=== PATIENT | female | born 1975 ===

== ENCOUNTER → 2017-09-03 | Outpatient (CLI) | payer OTHER ==
[~2017-09-03] MED LIST: AMOX500 PO; MULVITA PO
[2017-09-03 16:55] LABS: Specimen Source CERVIX
[2017-09-04 14:21] LABS: Source Cervix
[2017-09-04 20:16] LABS: HCV Non Reactive (NR)
== END ==
LOC: LAB 16:07
PROVIDERS: Physician Assistant
DX: N72 Inflammatory disease of cervix uteri (principal)
CPT/HCPCS: 80074; 86592; 87389; 87491; 87591

== ENCOUNTER 2021-02-13 00:56 | Observation (INO) | payer BC ==
[~2021-02-13] VITALS: Ht 165.1 cm; Wt 92.1 kg
[2021-02-13 02:37] LABS: Source, Urine Clean Catch
[2021-02-13 02:37] LABS: BASOPHILS ABSOLUTE AUTO 0.06 K/mm3 (0.00-0.23); BASOPHILS PERCENT AUTO 1 % (0-2); EOSINOPHILS ABSOLUTE AUTO 0.21 K/mm3 (0.00-0.68); EOSINOPHILS PERCENT AUTO 2 % (0-6); Hematocrit 45.5 % (33.0-51.0); Hemoglobin 14.7 g/dL (11.5-16.0); IMMATURE GRAN ABSOLUTE AUTO 0.07 K/mm3 (0.00-0.10); IMMATURE GRAN PERCENT AUTO 1 % (0-1); LYMPHOCYTES ABSOLUTE AUTO 2.73 K/mm3 (0.84-5.20); LYMPHOCYTES PERCENT AUTO 21 % (21-46); MONOCYTES ABSOLUTE AUTO 0.73 K/mm3 (0.16-1.47); MONOCYTES PERCENT AUTO 6 % (4-13); Mean Corpuscular HGB 27.3 pg (26.0-34.0); Mean Corpuscular HGB Conc 32.3 g/dL (31.5-36.5); Mean Corpuscular Volume 85 fL (80-100); Mean Platelet Volume 11.1 fL (9.1-12.4); NEUTROPHILS ABSOLUTE AUTO 8.95 K/mm3 (1.96-9.15); NEUTROPHILS PERCENT AUTO 70 % (41-73); Platelet Count 294 K/mm3 (150-400); RDW Coefficient Variation 13.5 % (11.7-14.2); RDW Standard Deviation 42.1 fL (35.1-46.3); Red Blood Cell Count 5.38 M/mm3 (3.80-5.20); White Blood Cell Count 12.75 K/mm3 (4.00-11.30)
[2021-02-13 02:50] LABS: Bilirubin, Urine Neg (Neg); Blood, Urine 1+ (Neg); Glucose Qualitative, Urine Neg (Neg); Ketones, Urine 1+ (Neg); Leukocyte Esterase, Urine Neg (Neg); Nitrite, Urine Neg (Neg); Protein, Urine 1+ (Neg); Urobilinogen, Urine NORM (Normal)
[2021-02-13 02:54] LABS: Appearance, Urine Clear (Clear); Color, Urine Yellow (P-Yellow)
[2021-02-13 02:55] LABS: Bacteria Many /hpf; Mucus Light (0-Heavy); Red Blood Cells, Urine 0-2 /hpf (0-2); Squamous Epithelial Cells Few /hpf (Few); White Blood Cells, Urine 0-2 /hpf (0-5)
[2021-02-13 02:56] LABS: Alanine Aminotransfer (ALT/SGP 34 U/L (12-78); Albumin, Blood 3.8 g/dL (3.4-5.0); Albumin/Globulin Ratio 0.8 (0.8-1.8); Alk Phos 75 U/L (50-136); Anion Gap 8 mmol/L (6-16); Aspartate Aminotrans (AST/SGOT 10 U/L (12-37); Bilirubin, Total 0.3 mg/dL (0.1-1.0); Blood Urea Nitrogen 13 mg/dL (8-24); Bun/Creatinine Ratio 19.4 (12.0-20.0); CO2, Blood 22 mmol/L (21-32); Calcium, Blood 8.9 mg/dL (8.5-10.1); Chloride, Blood 108 mmol/L (98-108); Creatinine, Blood 0.67 mg/dL (0.40-1.00); Globulin, Blood 4.6 g/dL (2.2-4.0); Glomerular Filtration Rate >60 (60-); Glucose, Blood 111 mg/dL (70-99); Potassium, Blood 3.8 mmol/L (3.5-5.5); Sodium, Blood 138 mmol/L (136-145); Total Protein, Blood 8.4 g/dL (6.4-8.2)
[2021-02-13 06:50] LABS: SARS-Cov-2 (COVID-19) PCR, MMC NEGATIVE (NEGATIVE)
--- NOTE | 2021-02-13 10:58 | NUR ---
PT TAKEN TO DAY SURGERY.
--- NOTE | 2021-02-13 11:31 | NUR ---
History, Chart, Medications and Allergies reviewed before start of procedure. Lungs clear T/O to Auscultation. Patient confirms NPO status and agrees with scheduled surgery. Pre-Op teaching done. Pt verbalizes understanding.
--- NOTE | 2021-02-13 19:16 | NUR ---
SUMMARY VSS, TOLERATING REGULAR DIET, ABD INCISIONS C/D/I, IV DILAUDID AND NORCO GIVEN FOR PAIN, ENOURAGED OOB TO VOID AND AMBULATE ONCE PAIN MEDS TAKE EFFECT, NO ACUTE CHANGES THIS SHIFT.
--- NOTE | 2021-02-14 06:20 | NUR ---
POD 1 S/P LAP NISHANT. PT VSS T/O NIGHT. INCISIONS CDI. PT CHUYITA REG PO, NO N/V, REP +FLATUS THIS AM, IS VOIDING URINE W/O DIFFICULTY. PAIN MGD PER EMAR, MED FOR BREAKTHROUGH PAIN X2. PT AMB INDEP, CHUYITA WELL. PT REP ANXIOUS TO D/C HOME R/T LIVING ON 3RD FLOOR W>30 STEPS TO GET INTO HER HOME. PLAN TO CONT TO MOBILIZE PT CHUYITA.
--- NOTE | 2021-02-14 08:37 | NUR ---
C/O 6 ABD PAIN, MEDICATED W/ 2 NORCO, DENIES ANY NAUSEA, REPORTS HAVING NO APPETITE, ENCOURAGED TO AMBULATE, CONT. TO MONITOR FOR ANY CHANGES.
[2021-02-14] MEDS ORDERED: HYDR1TAB94 PO (09:24)
[2021-02-14] MEDS ORDERED: DOCU100 PO (15:09)
[2021-02-14] MEDS ORDERED: ZOFRAN4 MG PO (15:11)
--- NOTE | 2021-02-14 17:25 | NUR ---
DC'D HOME, DC INSTRUCTIONS GIVEN, VERBALIZED UNDERSTANDING, IV DC'D, CATH INTACT, RX CALLED TO [facility] W/ BELONGINGS.
--- NOTE | 2021-02-14 18:02 | NUR ---
Provided companionship, encouragement, and gentle evp general counsel to Christy.
== END 2021-02-14 17:27 | disposition home or self-care (01) ==
LOC: ER 00:56 → SURS 00:57
PROVIDERS: Student in an Organized Health Care Education/Training Program; Surgery; ADMIT Surgery
PROC: 0FT44ZZ Resection of Gallbladder, Percutaneous Endoscopic Approach (ICD-10-PCS; principal; 2021-02-13 13:00)
DX: K80.12 Calculus of gallbladder with acute and chronic cholecystitis without obstruction (principal); Z87.891 Personal history of nicotine dependence; Z20.822 Contact with and (suspected) exposure to COVID-19
CPT/HCPCS: 36415; 76705; 80053; 81001; 81025; 83690; 85025; 87086; 88304; 96374; 96375; 96376; 99285-25; A9270; G0378; J0690; J1100; J1170; J1885; J2250; J2405; J2704; J3010; J7120; U0004